=== PATIENT | male | born 1990 | race Caucasian/White ===

== ENCOUNTER 2019-01-18 19:55 | Emergency (ER) | payer BC ==
[2019-01-18 20:16] VITALS: BP 131/86
--- NOTE | 2019-01-18 20:42 | EDM.PDOC ---
ED HPI GENERAL MEDICAL PROBLEM - General Chief Complaint: Laceration Stated Complaint: CUT HAND ON A TIN CAN Time Seen by Provider: 01/18/19 20:33 Source of Information: Reports: Patient History Limitations: Reports: No Limitations - History of Present Illness INITIAL COMMENTS - FREE TEXT/NARRATIVE: 28 yo M comes in today for 2cm cut to his right middle finger. He has good ROM, neurovascularly intact, denies numbness/tingling, mild pain. Unsure of tetanus status. No other concerns at this time. Right Finger-Middle Pain Score (Numeric/FACES): 4 - Related Data Allergies Allergy/AdvReac Type Severity Reaction Status Date / Time No Known Allergies Allergy Verified 01/18/19 20:16 Home Meds: Home Meds . [No Known Home Meds] 07/26/15 [History] Past Medical History - Past Health History Medical/Surgical History: Denies Medical/Surgical History ED ROS GENERAL - Review of Systems Review Of Systems: ROS reveals no pertinent complaints other than HPI. ED EXAM, SKIN/RASH Exam: See Below Exam Limited By: No Limitations General Appearance: Alert, WD/WN, No Apparent Distress Eye Exam: Bilateral Eye: Normal Inspection Ears: Normal External Exam, Hearing Grossly Normal Head: Atraumatic, Normocephalic Peripheral Pulses: 3+: Radial (L), Radial (R) Extremities: Normal Range of Motion, Non-Tender, No Pedal Edema, Normal Capillary Refill, Other (finger pain s/p cut, actively bleeding) Neurological: Alert, Oriented Psychiatric: Normal Affect, Normal Mood Skin: Warm, Dry, Wound/Incision (2cm laceration to R finger, actively bleeding) ED SKIN PROCEDURES - Laceration/Wound Repair Right Distal Digit - 3rd (Middle) Lac/Wound length In cm: 2 Appearance: Superficial Distal NVT: Neuro & Vascular Intact, No Tendon Injury Skin Prep: Chlorhexidine (Hibiciens), Saline Exploration/Debridement/Repair: Wound Explored, Minimal Debridement, No Foreign Material Found Closed with: Wound Adhesive Course - Vital Signs Last Recorded V/S: Last Vital Signs Temp 98.2 F 01/18/19 20:13 Pulse 65 01/18/19 20:13 Resp 18 01/18/19 20:13 BP 131/86 01/18/19 20:13 Pulse Ox 100 01/18/19 20:13 - Orders/Labs/Meds Orders: Active Orders 24 hr Category Date Time Status Vaccines to be Administered [RC] PER UNIT ROUTINE Care 01/18/19 21:15 Active Meds: Medications Discontinued Medications Generic Name Dose Route Start Last Admin Trade Name Josiah PRN Reason Stop Dose Admin Diphtheria/Tetanus/Acell Pertussis 0.5 ml 01/18/19 21:15 01/18/19 21:37 Adacel IM 01/18/19 21:16 0.5 ml .ONCE ONE Administration Departure - Departure Time of Disposition: 21:40 Disposition: Home, Self-Care 01 Condition: Good Clinical Impression: Laceration of right middle finger - Discharge Information *PRESCRIPTION DRUG MONITORING PROGRAM REVIEWED*: Not Applicable *COPY OF PRESCRIPTION DRUG MONITORING REPORT IN PATIENT WILD: Not Applicable Instructions: Laceration Care, Adult, [id number], Stitches, Marisa, or Adhesive Wound Closure, [id number] Referrals: PCP,None [Primary Care Provider] - Forms: ED Department Discharge Additional Instructions: You were seen in the ED today for a laceration to your right middle finger. At this time, the wound was very superficial and did not require stitches. Dermabond was applied to the laceration to help close and protect it. Do not soak the finger in water, try to keep the area dry and clean, and let the glue fall off on its own. Look for signs of infection such as increased redness, drainage, fever. Can apply topical Polysporin if you notice these symptoms. Please return to ED if new or worsening symptoms. - My Orders Last 24 Hours: My Active Orders 01/18/19 21:15 Vaccines to be Administered [RC] PER UNIT ROUTINE - Assessment/Plan Last 24 Hours: My Active Orders 01/18/19 21:15 Vaccines to be Administered [RC] PER UNIT ROUTINE
[2019-01-18] MEDS ORDERED: Diphtheria,Pertussis(Acell),Tetanus Vaccine 0.5 ML Syringe IM ONE (21:15)
== END 2019-01-18 21:57 | disposition home or self-care (01) ==
LOC: JD.ED 19:55
DX: S61.212A Laceration without foreign body of right middle finger without damage to nail, initial encounter (principal); Z23 Encounter for immunization; W27.4XXA Contact with kitchen utensil, initial encounter
CPT/HCPCS: 12001; 90471; 90700; 99282